=== PATIENT | female | born 1995 | race African-American/Black ===

== ENCOUNTER 2019-10-17 14:33 | Outpatient (CLI) | payer MEDICAID ==
[~2019-10-17] VITALS: Ht 170.2 cm; Wt 109.5 kg
--- NOTE | 2019-10-17 14:40 | NUR ---
Patient ambulatory to LR3 with significant other, changed into gown, FHR/TOCO monitors placed and explained. Patient states she has been lola for the last couple of day and have become more regular and stronger. Denies any leaking of fluid, vaginal bleeding, decreased movement. Plan of care discussed. 1448: SVE-/-3 and white discharge noted on glove.
[2019-10-17] MEDS ORDERED: PRENATAL VITAMI1 TA3 PO (14:47)
[2019-10-17 15:15] VITALS: BP 113/56; PULSE 90; TEMP 98.4
[2019-10-17 16:10] VITALS: BP 113/67; PULSE 83
--- NOTE | 2019-10-17 16:10 | NUR ---
Patient given discharge instructions and patient verbalizes understanding. signs papers. 1620: Ambulatory off unit
== END 2019-10-17 16:20 | disposition home or self-care (01) ==
LOC: LDRO 14:33
DX: O62.9 Abnormality of forces of labor, unspecified (principal); Z3A.38 38 weeks gestation of pregnancy

== ENCOUNTER 2019-10-19 08:16 | Inpatient (IN) | payer MEDICAID ==
[~2019-10-19] VITALS: Ht 170.2 cm; Wt 109.5 kg
[2019-10-19] VITALS (24 sets, daily range): BP systolic 106–138; BP diastolic 55–94; PULSE 67–100; TEMP 97.9–98.6
[~2019-10-19 08:16] MED LIST: PRENATAL VITAMI1 TA3 PO
--- NOTE | 2019-10-19 08:30 | NUR ---
Patient arrives ambulatory with FOB with complaints of contractions since 0550 every few minutes. Patient denies ROM or vaginal bleeding and reports normal movement. Patient breathing through contractions and tearful. Changes into gown, EFM explained and placed. VS obtained. 0835- SVE 2 with BBOWI. Patient repositioned WL and updated on plan of care. 0840- Dr. Alcantara notified of patient arrival, reviewed history and patient assessment. SVE with BBOWI, last SVE . Reviewed FHR strip and ctx pattern. Patient requesting epidural. GBS positive status. Admit orders recieved, start Parvez protocol. Patient may have epidural. 0845- IV started, labs obtained. LR infusing and Parvez infusing, see EMAR. 0850- Rosa Lynn CRNA notified and in transit. LR bolus infusing. Consents explained and signed. Patient denies questions.
[2019-10-19 10:04] LABS: BASO % 0.1 % (0.0-2.0); EOS # 0.1 (0.0-0.7); EOS % 0.9 % (0-4.0); GRAN # 4.7 (1.4-6.5); GRAN % 66.2 % (42.2-75.2); HEMATOCRIT 37.1 % (37.0-47.0); HEMOGLOBIN 12.1 g/dl (12.5-16.0); LYMPH # 1.6 (1.2-3.4); MEAN CELL VOLUME 82 fl (80.0-100.0); MEAN CORPUSCULAR HEMOGLOBIN 27 pg (27.0-31.0); MEAN CORPUSCULAR HGB CONC 33 g/dl (33.0-37.0); MEAN PLATELET VOLUME 12.7 fl (7.4-10.4); MONO # 0.7 (0.1-0.6); MONO % 9.2 % (1.7-9.3); PLATELET COUNT 213 K/mm3 (130-400); RED BLOOD COUNT 4.51 M/mm3 (4.10-5.30); REDCELL DISTRIBUTION WIDTH-CV 15.3 % (11.5-14.5)
--- NOTE | 2019-10-19 12:30 | NUR ---
Dr. Alcantara to room, reviews FHR tracing, SVE with AROM, 8/100/0, meconium fluid noted.
--- NOTE | 2019-10-19 13:33 | NUR ---
1259 PATIENT PUSHES AND DELIVERS BABY BOY VIA BY DR HILTON. CORD CLAMPED AND CUT BY DR AT THIS TIME. BABY TO MOMS CHEST. SMALL LABIAL REPAIR DONE BY . PATIENT TOLERATES WELL. 1308 PLACENTA DELIVERED AT THIS TIME AND PITOCIN STARTED AT 333 PER PROTOCOL. FUNDUS FIRM AND BLEEDING MODERATE, ICE PACK APPLIED AT THIS TIME.
--- NOTE | 2019-10-19 15:17 | NUR ---
1500 REPORT GIVEN TO Zaira VERGARA TO ASSUME CARE AT THIS TIME
--- NOTE | 2019-10-19 20:56 | NUR ---
2034 PT CALLED OUT THIS NURSE TO HER ROOM. PT VOMITTING IN THE TRASH CAN. GIVEN A EMESIS MONREAL, RONNI FROM DR HILTON FOR JACQUELIN.
[2019-10-20 00:15] VITALS: BP 109/56; PULSE 77; TEMP 97
[2019-10-20 04:45] VITALS: BP 105/55; PULSE 76; TEMP 98
[2019-10-20 07:40] VITALS: BP 110/66; PULSE 89; TEMP 97.6
--- NOTE | 2019-10-20 10:10 | NUR ---
1010- Pt passes clot while on toilet. This RN finds clot to be plum sized. Pt denies heavy vaginal bleeding on pad. Encourage Pt call out if bleeding increases.
--- NOTE | 2019-10-20 10:37 | NUR ---
Initial visit; Patient thaned Bunch Breaker for looking in on her and offering congratulations and God's blessings for the of her son. Bunch Breaker thanked Mom for choosing [facility].
[2019-10-20 12:30] VITALS: BP 111/59; PULSE 76; TEMP 98.1
[2019-10-20 15:46] VITALS: BP 102/44; PULSE 79; TEMP 97.9
[2019-10-20 20:15] VITALS: BP 114/67; PULSE 84; TEMP 97.7
[2019-10-21 07:37] VITALS: BP 114/68; PULSE 82; TEMP 97.8
[2019-10-21] MEDS ORDERED: IBU800 M1 PO (08:23)
[2019-10-21] MEDS ORDERED: PRENATAL VITAMI1 TA3 PO (08:24)
== END 2019-10-21 10:38 | disposition home or self-care (01) | DRG 806 ==
LOC: LDRO 08:16 → OB 08:43 → LDR 08:43 → OB 14:53
PROVIDERS: Student in an Organized Health Care Education/Training Program; ADMIT Obstetrics & Gynecology
PROC: 10E0XZZ Delivery of Products of Conception, External Approach (ICD-10-PCS; principal; 2019-10-19)
PROC: 0HQ9XZZ Repair Perineum Skin, External Approach (ICD-10-PCS; 2019-10-19)
PROC: 0UQMXZZ Repair Vulva, External Approach (ICD-10-PCS; 2019-10-19)
PROC: 10907ZC Drainage of Amniotic Fluid, Therapeutic from Products of Conception, Via Natural or Artificial Opening (ICD-10-PCS; 2019-10-19)
DX: O77.0 Labor and delivery complicated by meconium in amniotic fluid (principal); O98.32 Other infections with a predominantly sexual mode of transmission complicating childbirth; Z37.0 Single live birth; O99.824 Streptococcus B carrier state complicating childbirth; E66.9 Obesity, unspecified; O99.02 Anemia complicating childbirth; D57.1 Sickle-cell disease without crisis; A59.9 Trichomoniasis, unspecified; O99.214 Obesity complicating childbirth; Z3A.38 38 weeks gestation of pregnancy; O70.0 First degree perineal laceration during delivery; Z23 Encounter for immunization
CPT/HCPCS: J2405; J2540; J2590; J2795; J7120